=== PATIENT | male | born 1955 | race Caucasian/White ===

== ENCOUNTER 2019-03-18 16:35 | Inpatient (IN) | payer BC, OTHER ==
[~2019-03-18] VITALS: Ht 172.7 cm; Wt 82.8 kg
[2019-03-19 12:25] VITALS: BP 133/93; PULSE 75; TEMP 98.8
[2019-03-19] MEDS ORDERED: MULTI VITAMINS1 TAB PO (13:30)
[2019-03-19] MEDS ORDERED: ASPIRIN 81M81 MG/TA2 PO (13:30)
[2019-03-19] MEDS ORDERED: ZOCOR 10MG10 MG PO (13:31)
--- NOTE | 2019-03-19 16:34 | NUR ---
Report from [facility] nurse, pt arrived with via wheelchair, Manoj, PT reports pt c/o pain in LLE, unable to lift ball of foot, Manoj reports when he assisted pt with lifting foot the pt instantly had a lot of pain. LLE is more painful and more swollen/tight in calf than RLE, pt has pain in both, temperature and color equal, pulses equal. Pt denies hx of clots. Notified Dr. Robledo, who instructed to place US orders and have them called in the morning.
[2019-03-19 16:39] VITALS: BP 138/69; PULSE 78; TEMP 98.2
--- NOTE | 2019-03-19 20:09 | NUR ---
Report to MACIE Dixon. Pt was being assisted on the BSC at report time, he conversed through the curtain. SULEMAN Clarke had reported concerns of pt's slurred speech and tracking, increased weakness with transfer/amb, unable to follow directions. At report time, pt was back to baseline when this nurse spoke with him at 1630, slightly slurred speech, but intelligible.
--- NOTE | 2019-03-19 22:00 | NUR ---
Shift assessment complete. Patient in bed, awake. Denies pain, but states his LLE is swollen and painful to touch. LLE U/S report pending. Denies further needs at this time. Will continue to monitor.
[2019-03-20 05:32] VITALS: BP 127/69; PULSE 75; TEMP 98.5
--- NOTE | 2019-03-20 06:06 | NUR ---
Patient in chair, awake. Denies pain. Denies further needs at this time. Will continue to monitor.
--- NOTE | 2019-03-20 10:41 | NUR ---
Patient was in physical therapy.
--- NOTE | 2019-03-20 17:36 | NUR ---
PT WAS ABLE TO DRESS HIMSELF THIS AM. HE COULD PUT HIS SHOES ON AND EMMANUEL THE TOO. HE PICKS UP HIS WALKER AND AMBULATES TO BR. HER WAS REMINDE SEVERAL TIMES TO USE THE WALKR WHILE IT IS ON THE GROUND. PT HAS ATE POORLY TODAY. FAMILY AND FRIENDS HERE TODAY TO VISIT. AND PT PLAYED YATZEE TO HAVE PT USE HIS MIND. NO SKIN ISSUES. PT HAS HAD NO PAIN ISSUES TODAY. PT HAD A BM THIS AM, HE STATES IT WAS NORMAL FOR HIM. I REMINDED HIM TO LET STAFF SEE BEFORE FLUSHING NEXT TIME
[2019-03-20 19:01] VITALS: BP 125/66; PULSE 73; TEMP 98.4
--- NOTE | 2019-03-20 22:00 | NUR ---
Pt. sitting up in chair at this time. Pt. is A&OX3, assessment complete. Pt. assisted with evening ADL's. Then assisted to the bed. Pt. denies pain or other needs, call light within reach.
[2019-03-21 05:30] VITALS: BP 121/67; PULSE 78; TEMP 98.4
--- NOTE | 2019-03-21 13:00 | NUR ---
Alert. States he feels like his cognitive function is improving. States appetite also better. Steady on feet when ambulating with walker. Left calf edematous. Denies pain. Sitting up in chair, visiting with family.
[2019-03-21 18:33] VITALS: BP 115/58; PULSE 71; TEMP 98.2
--- NOTE | 2019-03-21 19:01 | NUR ---
PATIENT SITTING UP IN CHAIR DURING SHIFT CHANGE REPORT FROM DAY SHIFT NURSE. DENIES ANY NEEDS OR CONCERNS. CHAIR ALARM ENGAGED.
--- NOTE | 2019-03-22 01:10 | NUR ---
RESTING IN BED WITH EYES CLOSED, DOES NOT AWAKEN WHEN ROOM ENTERED. BED ALARM ENGAGED.
--- NOTE | 2019-03-22 03:13 | NUR ---
RESTING IN BED WITH EYES CLOSED, DOES NOT AWAKEN WHEN ROOM ENTERED. BED ALARM ENGAGED
[2019-03-22 05:45] VITALS: BP 103/54; PULSE 72; TEMP 98.3
--- NOTE | 2019-03-22 07:30 | NUR ---
PATIENT IN CHAIR DURING SHIFT CHANGE REPORT GIVEN TO DAY SHIFT NURSE. CHAIR ALARM ENGAGED
--- NOTE | 2019-03-22 08:16 | NUR ---
Patient resting in recliner at this time, call light in reach and is getting ready to start therapy for the day. Denies pain at this time.
--- NOTE | 2019-03-22 14:15 | NUR ---
Patient attended all therapies this morning and will be finishing up with PT at 12:45 PM. Denies pain this afternoon. Will continue to monitor.
--- NOTE | 2019-03-22 15:00 | NUR ---
Field Marketing Manager met with patient and patient's Leslye (ph#[phone]) to complete initial intake as patient is new to [facility]. Patient lives in [place] with his and sees Dr. Mace for primary care. Patient obtains medications from [facility] pharmacy in [place]. Patient does not use any DME at home at this time. Patient's reports Advance Directives have been completed and that she can bring a copy in next time she comes to visit. TRUDY asked patient how this weekend went and he states he was busy with visitors. TRUDY set up family meeting for 03/24/19 @ 4075. TRUDY provided update to Maggi, [facility] Director.
--- NOTE | 2019-03-22 16:07 | NUR ---
Yahaira with ST reported that BIMS was completed for this patient.
[2019-03-22 16:53] VITALS: BP 132/58; PULSE 89; TEMP 98.2
--- NOTE | 2019-03-22 17:30 | NUR ---
Patient resting in recliner eating his supper. Has call light in reach and denies any questions at this time.
--- NOTE | 2019-03-22 19:10 | NUR ---
PATIENT UP IN CHAIR, WATCHING TV, DURING SHIFT CHANGE REPORT FROM DAY SHIFT NURSE. CHAIR ALARM ENGAGED.
--- NOTE | 2019-03-23 00:50 | NUR ---
RESTING IN BED WITH BED ALARM ENGAGED. NO NEEDS REPORTED.
--- NOTE | 2019-03-23 02:43 | NUR ---
RESTING WITH EYES CLOSED, DOES NOT AWAKEN WHEN ROOM ENTERED. BED ALARM ENGAGED.
--- NOTE | 2019-03-23 06:04 | NUR ---
REPORTS HAD X2 BM'S YESTERDAY.
[2019-03-23 06:08] VITALS: BP 120/69; PULSE 70; TEMP 98
--- NOTE | 2019-03-23 07:22 | NUR ---
PATIENT UP IN CHAIR DURING SHIFT CHANGE REPORT GIVEN TO DAY SHIFT NURSE. CHAIR ALARM ENGAGED. NO NEEDS REPORTED.
--- NOTE | 2019-03-23 07:32 | NUR ---
Bedside report from MACIE Lorenz. Pt in chair dressing prior to breakfast. His birthday is today. Denies needs.
--- NOTE | 2019-03-23 12:50 | NUR ---
Family visiting, pt amb with gait belt, glasses in place. Pleasant, continent of B/B
--- NOTE | 2019-03-23 14:53 | NUR ---
Pt made independent in room without device
[2019-03-23 16:13] VITALS: BP 149/67; PULSE 80; TEMP 97.9
--- NOTE | 2019-03-23 19:44 | NUR ---
Bedside report to MACIE Lorenz. Pt charissa Indep in rm. Reports having had a 2nd BM. Stressed importance of calling for any needs, stressed safety. Pt verbalized understanding. Informed pt of F/U appt with PCP.
--- NOTE | 2019-03-23 19:49 | NUR ---
PATIENT UP IN CHAIR DURING SHIFT CHANGE REPORT FROM DAY SHIFT NURSE. UP INDEP IN ROOM WITH NO REPORTED PROBLEMS. NO NEEDS REPORTED DURING REPORT.
--- NOTE | 2019-03-23 23:39 | NUR ---
REPORTS HAD PASSED TOTAL OF X2 BMs TODAY.
--- NOTE | 2019-03-24 03:28 | NUR ---
PATIENT RESTING IN BED WITH EYES CLOSED, DOES NOT AWAKEN WHEN ROOM ENTERED. UP IN ROOM INDEPENDENTLY, NO NEEDS REPORTED.
[2019-03-24 05:48] VITALS: BP 111/55; PULSE 66; TEMP 98.1
--- NOTE | 2019-03-24 07:08 | NUR ---
PATIENT UP IN CHAIR DURING SHIFT CHANGE REPORT GIVEN TO DAY SHIFT NURSE. PATIENT UP INDEPENDENTLY IN ROOM. NO NEEDS REPORTED.
[2019-03-24 07:34] LABS: HEMOGLOBIN 10.5 g/dl (13.5-18.0); MEAN CELL VOLUME 93 fl (80.0-100.0); MEAN CORPUSCULAR HEMOGLOBIN 29 pg (27.0-31.0); MEAN CORPUSCULAR HGB CONC 32 g/dl (33.0-37.0); MEAN PLATELET VOLUME 10.7 fl (7.4-10.4); PLATELET COUNT 307 K/mm3 (130-400); RED BLOOD COUNT 3.57 M/mm3 (4.20-5.60); REDCELL DISTRIBUTION WIDTH-CV 15.2 % (11.5-14.5)
[2019-03-24 07:40] LABS: HEMATOCRIT 33.3 % (42.0-52.0)
[2019-03-24 07:45] LABS: CALCIUM 8.8 mg/dL (8.4-10.2); CREATININE, serum 0.96 (0.66-1.25); MAGNESIUM 2.2 mg/dL (1.6-2.3); POTASSIUM 4.1 mmol/L (3.4-5.0)
--- NOTE | 2019-03-24 08:00 | NUR ---
Patient resting in bedside recliner eating breakfast at this time. Patient is alert and oriented, answers questions appropriately. Patient remains independent in his room. Denies pain or further needs, call light within reach.
[2019-03-24 16:02] VITALS: BP 130/63; PULSE 75; TEMP 98
--- NOTE | 2019-03-24 16:52 | NUR ---
Supervisor [employer] attended patient's family meeting which included patient's Leslye, IPR Director Maggi, and the therapy team. Patient's progress and discharge date were discussed. Outpatient Physical Therapy is recommended for patient upon discharge. Patient is in agreeance and would like to go to [facility] on [address] in [place]. Patient and patient's expressed no further questions or concerns at this time. SW provided patient with a copy of team conference notes. SW to continue to follow as needed.
--- NOTE | 2019-03-24 21:00 | NUR ---
Patient sits up in recliner alert and oriented x 4. Declines snack at this time. Denies need for pain med. HS meds reviewed and given. Visits readily with nurse.
--- NOTE | 2019-03-25 02:50 | NUR ---
Patient rests on stomach in bed. Respirations with ease.
[2019-03-25 05:28] VITALS: BP 117/63; PULSE 66; TEMP 98.4
--- NOTE | 2019-03-25 07:11 | NUR ---
Report from MACIE Dial. Pt indep in rm w/o device, glasses in place, was resting in recliner, plans to go home tomorrow. Pleasant, A&O, denies pain.
--- NOTE | 2019-03-25 12:11 | NUR ---
Pt having good day. Printed forms for OP PT and faxed completed papers to [facility]. Returned forms to pt and instructed him to take with him just in case. Pt denies pain.
[2019-03-25 16:06] VITALS: BP 131/75; PULSE 81; TEMP 97.8
--- NOTE | 2019-03-25 18:05 | NUR ---
Pt had good day, visiting at this time, reviewed labs per family/pt request.
[2019-03-25] MEDS ORDERED: ALBUTEROL1.25 MG/3 IH (22:00)
[2019-03-26 06:34] VITALS: BP 113/53; PULSE 78; TEMP 97.8
--- NOTE | 2019-03-26 10:11 | NUR ---
Report from MACIE Schofield. Pt charissa indep in rm without device, A&O, pleasant, takes pills with water, denies issues swallowing. Pt ready to discharge, requested he inform nurse when arrives. Verified receipt of new albuterol prescription with pt's pharmacy, and informed them pt's BP med is stopped at this time, verified zocor dose. Pt gathered own belongings including glasses, cell phone, electric razor and chargers, wedding band, clothes, shoes, pig basket.
--- NOTE | 2019-03-26 19:20 | NUR ---
Printed health summary, discharge summary, and home med list and reviewed with pt and , Leslye. Stressed importance of appts. Reviewed meds, pt states he has all at home. Belongings gathered by pt. Pt ambulated with this nurse to truck for ride home with . Pt and denied any questions.
== END 2019-03-26 11:00 | disposition home or self-care (01) | DRG 947 ==
LOC: EDBD
PROVIDERS: ADMIT Internal Medicine
DX: R53.81 Other malaise (principal); J96.90 Respiratory failure, unspecified, unspecified whether with hypoxia or hypercapnia; G72.9 Myopathy, unspecified; I10 Essential (primary) hypertension; E78.5 Hyperlipidemia, unspecified; Z79.82 Long term (current) use of aspirin; Z79.1 Long term (current) use of non-steroidal anti-inflammatories (NSAID); Z86.73 Personal history of transient ischemic attack (TIA), and cerebral infarction without residual deficits
CPT/HCPCS: 99222-AI; 99231-AI; 99232-AI; 99239; J1650